=== PATIENT | female | born 1980 | race Caucasian/White ===

== ENCOUNTER 2020-12-11 22:22 | Emergency (ER) | payer MEDICAID ==
[~2020-12-11] VITALS: Ht 167.6 cm; Wt 150.0 kg
[2020-12-11] MEDS ORDERED: cloNIDine 0.1 mg tablet PO ONE (23:05)
[2020-12-11 23:30] VITALS: BP 141/94
== END 2020-12-11 23:34 | disposition home or self-care (01) ==
LOC: ER 22:22
DX: I10 Essential (primary) hypertension (principal); R07.89 Other chest pain; F15.90 Other stimulant use, unspecified, uncomplicated; F12.90 Cannabis use, unspecified, uncomplicated; Z98.890 Other specified postprocedural states
CPT/HCPCS: 93005; 99283

== ENCOUNTER 2025-02-14 09:37 | Outpatient (CLI) | payer MEDICAID ==
--- NOTE | 2025-02-14 12:40 | VASCULAR REPORT ---
BILATERAL Lower Extremity Arterial Duplex Date: 02/14/2025 09:47 AM Clinical History: Claudication Comparison: None Technique: Duplex Doppler evaluation including color Doppler and spectral/pulsed waveform analysis of the lower extremity arteries was performed. Finding: RIGHT: Peak systolic velocities are as follows: CALL CENTER AGENT 100 cm/s Deep femoral 45 cm/s SFA proximal 86 cm/s SFA mid-portion 87 cm/s SFA distal 85 cm/s Popliteal 73 cm/s Posterior tibial 112 cm/s Anterior tibial 61 cm/s Peroneal 39 cm/s The waveforms are triphasic with diastolic flow . LEFT: Peak systolic velocities are as follows: CALL C[employer] AGENT 76 cm/s Deep femoral 53 cm/s BG anastomosis 122 cm/s BG 90 mi d BG 88 BG 96 BG 153 anatomosis Posterior tibial 134 cm/s Anterior tibial 134 cm/s REFERENCE VALUES, [facility] ([facility]) vascular Imaging Lab Criteria: Peak systolic velocity ranges (in cm/sec) are as follows: <150 cm/s - <20 % stenosis 150-200 cm/s - 20-49% stenosis 200-300 cm/s - 50-75% stenosis >300 cm/s -> 75% stenosis IMPRESSION: There is no evidence for peripheral vascular insufficiency in the right lower extremity. Left femoral anterior tibial artery bypass graft appears patent and displaced multiphasic flow throug hout. Possible pocket of fluid noted surrounding the proximal bypass graft possibly due to postsurgic al changes. The distal anastomosis of the left bypass graft also appears mildly dilated and measures 1.6 cm x 1.6 cm. The standing rock stented distal superficial femoral artery and popliteal artery appear occ luded. The distal peroneal artery also appears occluded. Multiphasic flow seen in the standing rock common femoral artery, profunda femoral artery, proximal / mid superficial femoral artery, and mid / distal anterior tibial artery.
--- NOTE | 2025-02-14 12:41 | VASCULAR REPORT ---
EXAM: VASC VL NATE ANKLE/BRACHIAL INDEX CLINICAL HISTORY: Claudication Peripheral vascular disease COMPARISON: None TECHNIQUE: Bilateral systolic ankle and brachial pressures are obtained, with ankle pulse volume waveforms and i ndices. FINDINGS: Pressures: Right Left Brachial 148 mmHg 158 mmHg PT 168 mmHg 144 mmHg JAREN 154 mmHg 160 mmHg NATE: Right Left 1.06 1.01 Pulse volume waveforms: Triphasic IMPRESSION: Normal NATE. 1.0-1.4: normal 0.91-0.99 borderline 0.9: abnormal (i.e. PAD) 0.4-0.9: [id number] PAD <0.4: suggestive of severe PAD
== END 2025-02-14 23:59 | disposition home or self-care (01) ==
LOC: RAD 09:37
PROVIDERS: ATTEND Surgery
DX: I73.9 Peripheral vascular disease, unspecified (principal)
CPT/HCPCS: 93922; 93925